=== PATIENT | male | born 1990 | race Caucasian/White ===

== ENCOUNTER 2018-04-16 10:57 | Emergency (ER) | payer SELFPAY ==
[2018-04-16] MEDS ORDERED: Sodium Chloride 0.9% 1,000 ML IV STA (11:09)
--- NOTE | 2018-04-16 11:20 | ED PDOC ---
Arrival/HPI - General Chief Complaint: Shortness Of Breath Time Seen by Provider: 04/16/18 11:00 Historian: Patient - History of Present Illness Narrative History of Present Illness (Text): 04/16/18 11:13 28 year old male presents to the Emergency department complaining of sudden onset of rapid breathing approximately 1 hour ago. Patient also complains of associated stiffness in his hands. Patient was at work during onset of symptoms and he left to seek Emergency department evaluation. Patient denies any fever, chills, chest pain, nausea, vomiting, diarrhea, urinary symptoms, back pain, neck pain, headache, dizziness, trauma/injury, or any other complaints. Time/Duration: 1-3 hours Symptom Onset: Sudden Symptom Course: Unchanged Context: Work Past Medical History - Provider Review Nursing Documentation Reviewed: Yes - Psychiatric Hx Psychophysiologic Disorder: No Hx Substance Use: No Family/Social History - Physician Review Nursing Documentation Reviewed: Yes Family/Social History: Unknown Family HX Smoking Status: Never Smoked Hx Alcohol Use: Yes Frequency of alcohol use: Socially Hx Substance Use: No Allergies/Home Meds Allergies/Adverse Reactions: Allergies No Known Allergies Allergy (Verified 04/16/18 11:00) Home Medications: Home Meds Medication Instructions Recorded Confirmed No Known Home Med 04/16/18 04/16/18 Review of Systems - Physician Review All systems were reviewed & negative as marked: Yes - Review of Systems Constitutional: absent: Fevers, Night Sweats Respiratory: SOB Cardiovascular: absent: Chest Pain Gastrointestinal: absent: Diarrhea, Nausea, Vomiting Genitourinary Male: absent: Dysuria Musculoskeletal: absent: Back Pain, Neck Pain Neurological: absent: Headache, Dizziness Physical Exam Vital Signs Reviewed: Yes Vital Signs Temp Pulse Resp BP Pulse Ox 04/16/18 13:20 98.2 F 80 16 147/80 99 04/16/18 11:50 98.6 F 04/16/18 11:34 85 18 151/84 H 98 04/16/18 11:10 22 Appearance: Positive for: Other (anxious appearing) - Systems Exam Head: Present: Atraumatic, Normocephalic Pupils: Present: PERRL Extroacular Muscles: Present: EOMI Conjunctiva: Present: Normal Mouth: Present: Moist Mucous Membranes Neck: Present: Normal Range of Motion Respiratory/Chest: Present: Clear to Auscultation, Good Air Exchange. No: Respiratory Distress, Accessory Muscle Use Cardiovascular: Present: Regular Rate and Rhythm, Normal S1, S2. No: Murmurs Abdomen: No: Tenderness, Distention, Peritoneal Signs Back: Present: Normal Inspection Upper Extremity: Present: Normal Inspection. No: Cyanosis, Edema Lower Extremity: Present: Normal Inspection. No: Edema Neurological: Present: GCS=15, CN II-XII Intact, Speech Normal Skin: Present: Warm, Dry, Normal Color. No: Rashes Psychiatric: Present: Alert, Oriented x 3, Normal Insight, Normal Concentration Medical Decision Making ED Course and Treatment: 04/16/18 11:23 Impression: 28 year old male presents to the Emergency department complaining of sudden onset of shortness of breath. Plan: -- Chest xray -- EKG -- D-Dimer -- Labs -- Ativan, Sodium Chloride IV fluids -- Reassess and disposition Progress Notes: 04/16/18 15:33 sob suspect anxiety/panic. labs dimer neg. cxr neg. pt feels much better in er, asking for d.c - Lab Interpretations Lab Results: 04/16/18 11:45 04/16/18 11:45 Lab Results 04/16/18 11:45: Sodium 144, Potassium 3.2 L, Chloride 105, Carbon Dioxide 25, Anion Gap 18, BUN 18, Creatinine 0.9, Est GFR ( Amer) > 60, Est GFR (Non- Af Amer) > 60, Random Glucose 105, Calcium 9.7, Total Bilirubin 0.4, AST 32, ALT 47, Alkaline Phosphatase 86, Total Protein 8.1, Albumin 4.8, Globulin 3.3, Albumin/Globulin Ratio 1.5 04/16/18 11:45: PT 14.9 H, INR 1.29 H, APTT 30.0, D-Dimer, Quantitative < 200 04/16/18 11:45: WBC 3.0 L, RBC 5.71, Hgb 17.5, Hct 48.3, MCV 84.6, MCH 30.6, MCHC 36.2, RDW 12.0, Plt Count 180, MPV 9.4, Gran % 43.2 L, Lymph % (Auto) 45.2 H, [place] % (Auto) 9.6 H, Eos % (Auto) 1.7, Baso % (Auto) 0.3, Gran # 1.30 L, Lymph # (Auto) 1.4, [place] # (Auto) 0.3, Eos # (Auto) 0.1, Baso # (Auto) 0.01 - RAD Interpretation Narrative RAD Interpretations (Text): 04/16/2018 11:51:57 Chest Xray FINDINGS: LUNGS: No active pulmonary disease. PLEURA: No significant pleural effusion identified, no pneumothorax apparent. CARDIOVASCULAR: Normal. OSSEOUS STRUCTURES: No significant abnormalities. VISUALIZED UPPER ABDOMEN: Normal. OTHER FINDINGS: None. IMPRESSION: No active disease. Radiology Orders: 04/16/18 11:09 CHEST PORTABLE [RAD] Stat - EKG Interpretation EKG Interpretation (Text): 04/16/18 11:21 EKG: Ordered, reviewed, and independently interpreted the EKG. Rate : 117 BPM Rhythm : Sinus tachycardia Interpretation : No ST-T wave changes. Comparison : No previous EKG for comparison. Interpreted by ED Physician: Yes Type: 12 lead EKG - Medication Orders Current Medication Orders: Discontinued Medications Sodium Chloride (Sodium Chloride 0.9%) 1,000 mls @ 999 mls/hr IV .Q1H1M STA Stop: 04/16/18 12:09 Last Admin: 04/16/18 11:49 Dose: 999 mls/hr eMAR Start Stop Document 04/16/18 11:49 JESSICA (Rec: 04/16/18 11:50 JESSICA KERNS-PC) Intravenous Solution Start Date 04/16/18 Start Time 11:50 End Date 04/16/18 End time 12:50 Total Infusion Time 60 Lorazepam (Ativan) 0.5 mg IVP ONCE ONE PRN Reason: Protocol Stop: 04/16/18 11:10 Last Admin: 04/16/18 11:50 Dose: 0.5 mg IVP Administration Document 04/16/18 11:50 SZA (Rec: 04/16/18 11:50 JESSICA KERNS-PC) Charges for Administration # of IVP Administrations 1 Potassium Chloride (K-Dur 20 Meq Er Tab) 40 meq PO STAT STA Stop: 04/16/18 12:19 Last Admin: 04/16/18 12:45 Dose: 40 meq - Scribe Statement The provider has reviewed the documentation as recorded by the Concepcionibted Cardozo All medical record entries made by the Vamsi were at my direction and personally dictated by me. I have reviewed the chart and agree that the record accurately reflects my personal performance of the history, physical exam, medical decision making, and the department course for this patient. I have also personally directed, reviewed, and agree with the discharge instructions and disposition. Disposition/Present on Arrival - Present on Arrival Any Indicators Present on Arrival: No History of DVT/PE: No History of Uncontrolled Diabetes: No Urinary Catheter: No History of Decub. Ulcer: No History Surgical Site Infection Following: None - Disposition Have Diagnosis and Disposition been Completed?: Yes Diagnosis: Dyspnea Disposition: HOME/ ROUTINE Disposition Time: 01:00 Patient Problems: Current Active Problems Problem Status Onset Dyspnea Acute Condition: STABLE Discharge Instructions (ExitCare): Anxiety, Adult (DC), Shortness of Breath ( Dyspnea) (DC) Additional Instructions: follow up with your doctor/clinic. return to er with worsening symptoms or concerns. Referrals: [facility] [Outside] - Follow up with primary [facility] [Outside] - Follow up with primary [facility] [Outside] - Follow up with primary PCP,NO [Primary Care Provider] - Follow up with primary Forms: Yip[employer] (Pashto)
--- NOTE | 2018-04-16 11:53 | RAD ---
HISTORY: sob COMPARISON: No prior. FINDINGS: LUNGS: No active pulmonary disease. PLEURA: No significant pleural effusion identified, no pneumothorax apparent. CARDIOVASCULAR: Normal. OSSEOUS STRUCTURES: No significant abnormalities. VISUALIZED UPPER ABDOMEN: Normal. OTHER FINDINGS: None. IMPRESSION: No active disease.
[2018-04-16 12:05] LABS: BASO # 0.01 K/mm3 (0.0-2.0); BASO % 0.3 % (0.0-3.0); EOS # 0.1 (0.0-0.7); EOS % 1.7 % (1.5-5.0); GRAN # 1.3 (1.4-6.5); GRAN % 43.2 % (50.0-68.0); HEMOGLOBIN 17.5 g/dL (14.0-18.0); LYMPH # 1.4 (1.2-3.4); LYMPH % 45.2 % (22.0-35.0); MEAN CELL VOLUME 84.6 fl (80.0-105.0); MEAN CORPUSCULAR HEMOGLOBIN 30.6 pg (25.0-35.0); MEAN CORPUSCULAR HGB CONC 36.2 g/dl (31.0-37.0); MEAN PLATELET VOLUME 9.4 fl (7.0-11.0); MONO # 0.3 (0.1-0.6); MONO % 9.6 % (1.0-6.0); RBC 5.71 10^6/uL (3.5-6.1)
[2018-04-16 12:17] LABS: ALB/GLOB RATIO 1.5 (1.1-1.8); ALBUMIN 4.8 g/dL (3.0-4.8); ALT/SGPT 47 U/L (7-56); AST/SGOT 32 U/L (17-59); BLOOD UREA NITROGEN 18 mg/dL (7-21); CALCIUM 9.7 mg/dL (8.4-10.5); GFR AFRICAN-AMERICAN > 60; GFR NON-AFRICAN AMERICAN > 60
[2018-04-16] MEDS ORDERED: Potassium Chloride 20 mEq ER Tab PO STA (12:18)
[2018-04-16 12:21] LABS: D DIMER < 200 ng/mL (0-243); INR 1.29 (0.93-1.08); PROTHROMBIN TIME 14.9 SECONDS (9.4-12.5)
[2018-04-16 13:22] VITALS: BP 147/80; PULSE 80; RESP 16; TEMP 98.2; O2SAT 99
--- NOTE | 2018-04-16 14:47 | CARD ---
APPROVED REPORT EKG Measurement Heart [id number] [place] [id number] <Conclusion> Sinus tachycardia Otherwise normal ECG
== END 2018-04-16 15:39 | disposition home or self-care (01) ==
LOC: ED 10:57
DX: R06.00 Dyspnea, unspecified (principal)
CPT/HCPCS: 71045; 80053; 85025; 85378; 85610; 85730; 93005; 96361; 96374; 99284; J2060; J7030

== ENCOUNTER 2018-06-26 17:20 | Emergency (ER) | payer SELFPAY ==
--- NOTE | 2018-06-26 18:19 | ED PDOC ---
Arrival/HPI - General Time Seen by Provider: 06/26/18 18:19 Historian: Patient - History of Present Illness Narrative History of Present Illness (Text): 06/26/18 18:19 This 28 yo male who denies pmh presents to this ED c/o left trapezius pain that radiates to his left shoulder for 3 days. Patient stated he felt left chest discomfort during deep inspiration. Patient denies dizziness, sob, abdominal pain, urinary symptoms. PERC negative for PE Time/Duration: Other (see hpi) Context: Home Past Medical History - Psychiatric Hx Psychophysiologic Disorder: No Hx Substance Use: No Family/Social History Smoking Status: Never Smoked Hx Alcohol Use: Yes Hx Substance Use: No Allergies/Home Meds Allergies/Adverse Reactions: Allergies No Known Allergies Allergy (Verified 04/16/18 11:00) Physical Exam Vital Signs Temp Pulse Resp BP Pulse Ox 06/26/18 17:21 98.4 F 75 17 149/65 100 Medical Decision Making ED Course and Treatment: 06/26/18 19:51 Re-evaluation. Patient feels better. Discussed results and plan with patient who expresses understanding. All questions answered and there is agreement with the plan to discharge home with instructions. Patient stable for discharge. Return if symptoms persist or worsen. Re-evaluation Time: 19:52 Reassessment Condition: Re-examined, Improved - Lab Interpretations Lab Results: 06/26/18 19:20 06/26/18 19:20 Lab Results 06/26/18 19:20: Sodium 145, Potassium 3.3 L, Chloride 104, Carbon Dioxide 28, Anion Gap 17, BUN 11, Creatinine 0.9, Est GFR ( Amer) > 60, Est GFR (Non- Af Amer) > 60, Random Glucose 91, Calcium 9.4, Magnesium 2.0, Total Bilirubin 0.5, AST 28, ALT 33, Alkaline Phosphatase 76, Total Protein 7.5, Albumin 4.5, Globulin 3.0, Albumin/Globulin Ratio 1.5 06/26/18 19:20: WBC 3.8 L D, RBC 5.47, Hgb 16.4, Hct 46.1, MCV 84.3, MCH 30.0, MCHC 35.6, RDW 11.8, Plt Count 193, MPV 10.0, Gran % 37.4 L, Lymph % (Auto) 52.1 H, [place] % (Auto) 7.3 H, Eos % (Auto) 2.9, Baso % (Auto) 0.3, Gran # 1.44, Lymph # (Auto) 2.0, [place] # (Auto) 0.3, Eos # (Auto) 0.1, Baso # (Auto) 0.01 I have reviewed the lab results: Yes Interpretation: No clinic. lab abnormalty - RAD Interpretation Narrative RAD Interpretations (Text): 06/26/18 19:52 CXR: NAD Radiology Orders: 06/26/18 18:41 CHEST TWO VIEWS (PA/LAT) [RAD] Stat - EKG Interpretation Interpreted by ED Physician: Yes (NSR @ [address] changes) Type: 12 lead EKG Comparison: Similar to previous EKG Disposition/Present on Arrival - Present on Arrival Any Indicators Present on Arrival: No History of DVT/PE: No History of Uncontrolled Diabetes: No Urinary Catheter: No History Surgical Site Infection Following: None - Disposition Have Diagnosis and Disposition been Completed?: Yes Diagnosis: Cervical radiculopathy Disposition: HOME/ ROUTINE Disposition Time: 19:54 Patient Plan: Discharge Patient Problems: Current Active Problems Problem Status Onset Cervical radiculopathy Acute Condition: IMPROVED Discharge Instructions (ExitCare): Radiculopathy (DC) Additional Instructions: Call private doctor for follow up visit in 1-2 days. Take medication as instructed. Return to emergency if symptoms worsen. Do not drive or operate machinery for at least 12 hours if you take Valium. Prescriptions: diaZEpam [Valium] 5 mg PO DAILY #5 tab Famotidine [Pepcid] 40 mg PO DAILY #10 tablet Naproxen 500 mg PO BID PRN #10 tablet PRN Reason: Pain, Severe (8-10) Referrals: [facility] [Outside] - Follow up with primary Alicia Redd MD [Medical Doctor] - Follow up with primary Forms: WORK NOTE
[2018-06-26 18:36] VITALS: TEMP 98.4; O2SAT 100
[2018-06-26 19:42] LABS: ALB/GLOB RATIO 1.5 (1.1-1.8); ALBUMIN 4.5 g/dL (3.0-4.8); ALT/SGPT 33 U/L (7-56); AST/SGOT 28 U/L (17-59); BASO # 0.01 K/mm3 (0.0-2.0); BASO % 0.3 % (0.0-3.0); BLOOD UREA NITROGEN 11 mg/dL (7-21); CALCIUM 9.4 mg/dL (8.4-10.5); EOS # 0.1 (0.0-0.7); EOS % 2.9 % (1.5-5.0); GFR AFRICAN-AMERICAN > 60; GFR NON-AFRICAN AMERICAN > 60; GRAN # 1.44 (1.4-6.5); GRAN % 37.4 % (50.0-68.0); HEMOGLOBIN 16.4 g/dL (14.0-18.0); LYMPH % 52.1 % (22.0-35.0); MEAN CELL VOLUME 84.3 fl (80.0-105.0); MEAN CORPUSCULAR HGB CONC 35.6 g/dl (31.0-37.0); MONO # 0.3 (0.1-0.6); MONO % 7.3 % (1.0-6.0); RBC 5.47 10^6/uL (3.5-6.1); RED CELL DISTRIBUTION WIDTH 11.8 % (11.5-14.5); WHITE BLOOD COUNT 3.8 10^3/ul (4.5-11.0)
[2018-06-26 20:33] VITALS: BP 143/99; PULSE 80; RESP 18
--- NOTE | 2018-06-27 09:57 | CARD ---
APPROVED REPORT Date of service: 06/26/2018 EKG Measurement Heart [id number] <Conclusion> Normal sinus rhythm with sinus arrhythmia Normal ECG
--- NOTE | 2018-06-27 10:56 | RAD ---
Date of service: 06/26/2018 HISTORY: Pleuritic chest pain. COMPARISON: 04/16/2018 TECHNIQUE: Chest PA and lateral FINDINGS: LUNGS: No active pulmonary disease. PLEURA: No significant pleural effusion identified. No pneumothorax apparent. CARDIOVASCULAR: Normal. OSSEOUS STRUCTURES: No significant abnormalities. VISUALIZED UPPER ABDOMEN: Normal. OTHER FINDINGS: None. IMPRESSION: No active disease. No significant interval change compared to the prior examination(s). Concordant results with the preliminary interpretation rendered by the emergency department physician procedure.
== END 2018-06-26 20:32 | disposition home or self-care (01) ==
LOC: ED 17:20
DX: M54.12 Radiculopathy, cervical region (principal)